=== PATIENT | female | born 1980 | race Caucasian/White ===

== ENCOUNTER 2020-07-23 13:34 | Outpatient (REF) | payer OTHER, SELFPAY | END 2020-07-23 13:35 | disposition home or self-care (01) | LOC: HO.LNP 13:34 | PROVIDERS: Visit Provider Family Medicine | DX: B34.9 Viral infection, unspecified (principal); Z20.822 Contact with and (suspected) exposure to COVID-19 | CPT/HCPCS: U0003; U0005 ==